=== PATIENT | male | born 1980 | race Caucasian/White ===

== ENCOUNTER → 2019-01-28 | Day surgery (SDC) | payer OTHER ==
[~2019-01-28] MED LIST: ACETAMINOPHEN 325 MG TABLET ONE; ANESTHESIA TRAY IN PYXIS 1 EA TRAY MC ONE; BUPIVACAINE 0.5 % PF 150 MG/30 ML VIAL ONE; CEFAZOLIN 1 GM ONE; CELECOXIB 100 MG CAPSULE ONE; FAMOTIDINE/PF INJ 20 MG/2 ML VIAL IV ONE; FENTANYL PF 100MCG/2ML AMPUL ONE; FENTANYL PF 250MCG/5ML AMPUL ONE; GABAPENTIN 300 MG CAPSULE ONE; HEMOSTATIC MATRIX 10 ML 1 EACH PAD MC ONE; KETOROLAC TROMETHAMINE INJ 30 MG/ML VIAL ONE; LIDOCAINE 1%-EPI 1:100,000 20 ML VIAL ONE; MEPERIDINE HCL/PF 100 MG/ML DISP.SYRIN ONE; METHYLENE BLUE 10 ML VIAL ONE; METOCLOPRAMIDE HCL 10 MG/2 ML VIAL ONE; MIDAZOLAM HCL 2 MG/2ML VIAL ONE; SUCCINYLCHOLINE CHLORIDE 20 MG/ML VIAL ONE; methylPREDNISolone ACETATE 40 MG/ML VIAL ONE; methylPREDNISolone ACETATE 80 MG/ML VIAL ONE; oxyCODONE HCL SR 10MG TAB.SR.12H PO ONE
== END | disposition home or self-care (01) ==
DX: M51.17 Intervertebral disc disorders with radiculopathy, lumbosacral region (principal)
CPT/HCPCS: 63030; 72020; 88304; 88311; A6209; A6402; J0330 ×2; J0690 ×2; J1040; J1100; J1885; J2175; J2250; J2405; J2704; J2710; J2765 ×2; J3010 ×2; J3490 ×4; Q9968